=== PATIENT | male | born 1960 | race Caucasian/White ===

== ENCOUNTER → 2016-06-06 | Outpatient (CLI) | payer OTHER ==
[~2016-06-06] MED LIST: IBUP-1050 PO; OMEG10007 PO
== END | disposition home or self-care (01) ==
LOC: C.LAB1850 09:01
PROVIDERS: ATTEND Internal Medicine
DX: Z00.00 Encounter for general adult medical examination without abnormal findings (principal); Z11.59 Encounter for screening for other viral diseases

== ENCOUNTER → 2016-06-24 | Outpatient (CLI) | payer OTHER | END | disposition home or self-care (01) | LOC: C.LABSPEC 10:20 | PROVIDERS: ATTEND Internal Medicine | DX: Z12.11 Encounter for screening for malignant neoplasm of colon (principal) ==

== ENCOUNTER → 2016-09-26 | Outpatient (CLI) | payer OTHER ==
--- NOTE | 2016-09-26 17:19 | DIAGNOSTIC IMAGING REPORT ---
LEFT ELBOW 3 VIEWS CLINICAL HISTORY: Left elbow injury. FINDINGS: 3 views of left elbow are obtained. No prior studies are available for comparison at the time of dictation. The skeletal structures are well mineralized. No fracture is seen. The joint spaces appear maintained. There is no joint effusion. There is degenerative spurring along the radial head, and a large enthesophyte is present at the triceps insertion on the ulna. There is mild soft tissue swelling overlying the ulnar aspect of the elbow. Small calcific densities are present within the medial soft tissues. IMPRESSION: 1. Mild soft tissue swelling with no radiographic evidence of fracture. 2. Degenerative change as above. Electronically signed by: oJse Rhodes M.D. 09/26/2016 5:18 PM Dictated Date/Time: 09/26/2016 5:15 PM
== END | disposition home or self-care (01) ==
LOC: C.RAD1850 16:29
PROVIDERS: ATTEND Internal Medicine
DX: S59.902A Unspecified injury of left elbow, initial encounter (principal); X58.XXXA Exposure to other specified factors, initial encounter

== ENCOUNTER 2016-10-04 20:59 | Observation (INO) | payer OTHER ==
[~2016-10-04] VITALS: Ht 182.9 cm; Wt 98.7 kg
[2016-10-04] MEDS ORDERED: ASPIRIN 81 MG CHEW PO STA (21:09)
[2016-10-04] MEDS ORDERED: NITROGLYCERIN 0.4 MG SL PER TAB CHARGE SL PRN (21:15)
--- NOTE | 2016-10-04 21:33 | DIAGNOSTIC IMAGING REPORT ---
CHEST ONE VIEW PORTABLE CLINICAL HISTORY: Atypical chest pain COMPARISON STUDY: 03/20/2014 FINDINGS: The heart is borderline enlarged. There are multiple old right-sided rib fractures. There is no failure. There is no focal pulmonary consolidation. There is a nonspecific right paraspinal opacity, possibly representing a hiatal hernia.[ IMPRESSION: 1. Mild cardiomegaly 2. No evidence of failure. No evidence of focal pulmonary consolidation 3. Right paraspinal opacity at the thoracoabdominal junction possibly representing a hiatal hernia Electronically signed by: Regis Mack M.D. 10/04/2016 9:32 PM Dictated Date/Time: 10/04/2016 9:31 PM
[2016-10-04 21:40] LABS: BASO % 0.6 %; BASO ABS # 0.04 K/uL (0-0.2); COMPLETE YES; EOS % 2.2 %; HEMATOCRIT 41.6 % (42-52); IG% 0.3 %; LYMPH % 35.3 %; MEAN CELL VOLUME 87.8 fL (80-100); MEAN CORPUSCULAR HEMOGLOBIN 28.9 pg (25-34); MEAN CORPUSCULAR HGB CONC 32.9 g/dl (32-36); MEAN PLATELET VOLUME 11.6 fL (7.4-10.4); MONO % 7.5 %; NEUT % 54.1 %; PLATELET COUNT 194 K/uL (130-400); RED BLOOD COUNT 4.74 M/uL (4.7-6.1)
[2016-10-04] MEDS ORDERED: IBUP-1050 PO (21:40)
[2016-10-04] MEDS ORDERED: OMEG10007 PO (21:41)
[2016-10-04 21:50] LABS: PARTIAL THROMBOPLASTIN RATIO 1.1; PROTHROMBIN TIME (PATIENT) 10.3 SECONDS (9.0-12.0)
[2016-10-04 21:58] LABS: ALT/SGPT 29 U/L (12-78); BLOOD UREA NITROGEN 27 mg/dl (7-18); BUN/CREATININE RATIO 32.4 (10-20); CARBON DIOXIDE 25 mmol/L (21-32); CHLORIDE 108 mmol/L (98-107); CREATININE 0.82 mg/dl (0.60-1.40); GLUCOSE 115 mg/dl (70-99); POTASSIUM 4.1 mmol/L (3.5-5.1); SODIUM 142 mmol/L (136-145)
[2016-10-04 22:03] LABS: ALKALINE PHOSPHATASE 51 U/L (45-117); AST/SGOT 18 U/L (15-37); CKMB/CK RATIO 1.5 (0-3.0)
--- NOTE | 2016-10-04 22:03 | EMERGENCY ROOM VISIT NOTE ---
History Report prepared by Renaldo: Emelny Higgins Under the Supervision of: Dr. Marquis Leal D.O. First contact with patient: 21:06 Chief Complaint: CARDIAC ASSESSMENT Stated Complaint: LEFT SIDE OF CHEST HURTS, HEADACHE History of Present Illness The patient is a 56 year old male who presents to the Emergency Room with complaints of constant left sided chest pressure starting yesterday evening. The history was given through a friend interpreting. Yesterday evening he started to feel pressure in his chest and a headache. He was unable to sleep well last night. He stayed home today and called the doctor's office who said to present to the ED. His pain worsens with exertion. Lying down improves his pain. He does not have any pain with breathing. He reports some back pain. He denies any abdominal pain, leg pain, or SOB. He is under increased stress at work. He is not on any medications. He denies any tobacco or alcohol use. He denies any family history of MD. Source of History: patient (through friend interpreting) Onset: yesterday evening Position: chest (left) Quality: pressure Timing: constant Modifying Factors (Worsening): exertion Modifying Factors (Relieving): other (lying down) Associated Symptoms: + back pain, + headache, No SOB, No abdominal pain Note: Pt denies leg pain. Review of Systems See HPI for pertinent positives & negatives. A total of 10 systems reviewed and were otherwise negative. Past Medical & Surgical Medical Problems: (1) Chest pain, rule out acute myocardial infarction Surgical Problems: (1) Status post right knee replacement Family History Hypertension Social History Smoking Status: Never Smoker Alcohol Use: none Marital Status: Housing Status: lives with family Occupation Status: employed Current/Historical Medications Scheduled Fish Oil ([place]-3), 1 CAP PO DAILY Scheduled PRN Ibuprofen (Advil), 200 MG PO TID PRN for Pain or Fever Allergies Coded Allergies: No Known Allergies (Verified , 12/31/07) Physical Exam Vital Signs Date Time Temp Pulse Resp B/P Pulse Ox O2 Delivery O2 Flow Rate FiO2 10/04/16 23:44 58 16 113/78 96 Room Air 10/04/16 22:00 66 10/04/16 21:51 83 18 113/78 10/04/16 21:40 88 16 128/89 10/04/16 21:02 36.4 68 18 135/86 95 Physical Exam GENERAL: Patient is awake, alert, and in no acute distress. Patient is resting comfortably and showing no signs of anxiety EYES: The conjunctivae are clear. The pupils are round and reactive. EARS, NOSE, MOUTH AND THROAT: The nose is without any evidence of any deformity. Mucous membranes are moist tongue is midline NECK: The neck is nontender and supple. RESPIRATORY: Normal respiratory effort is noted there is no evidence of wheezing rhonchi or rales CARDIOVASCULAR: Regular rate and rhythm noted there no murmurs rubs or gallops normal S1 normal S2 GASTROINTESTINAL: The abdomen is soft. Bowel sounds are present in all quadrants. Abdomen is nontender MUSCULOSKELETAL/EXTREMITIES: There is no evidence of gross deformity full range of motion is noted in the hips and shoulders SKIN: There is no obvious evidence of any rash. There are no petechiae, pallor or cyanosis noted. NEUROLOGIC: Patient is awake alert and oriented x3 according to friend. Medical Decision & Procedures ER Provider Diagnostic Interpretation: X-ray results as stated below per interpretation by me and the radiologist. CHEST ONE VIEW PORTABLE CLINICAL HISTORY: Atypical chest pain COMPARISON STUDY: 03/20/2014 FINDINGS: The heart is borderline enlarged. There are multiple old right-sided rib fractures. There is no failure. There is no focal pulmonary consolidation. There is a nonspecific right paraspinal opacity, possibly representing a hiatal hernia.[ IMPRESSION: 1. Mild cardiomegaly 2. No evidence of failure. No evidence of focal pulmonary consolidation 3. Right paraspinal opacity at the thoracoabdominal junction possibly representing a hiatal hernia Electronically signed by: Regis Mack M.D. 10/04/2016 9:32 PM Dictated Date/Time: 10/04/2016 9:31 PM Laboratory Results Test 10/04/16 21:30 Prothrombin Time 10.3 SECONDS (9.0-12.0) Prothromb Time International Ratio 1.0 (0.9-1.1) Activated Partial Thromboplast Time 28.2 SECONDS (21.0-31.0) Partial Thromboplastin Ratio 1.1 D-Dimer 250 ug/L FEU (0-500) Total Bilirubin 0.2 mg/dl (0.2-1) Direct Bilirubin < 0.1 mg/dl (0-0.2) Aspartate Amino Transf (AST/SGOT) 18 U/L (15-37) Alanine Aminotransferase (ALT/SGPT) 29 U/L (12-78) Alkaline Phosphatase 51 U/L (45-117) Total Creatine Kinase 130 U/L (39-308) Creatine Kinase MB 2.0 ng/ml (0.5-3.6) Creatine Kinase MB Ratio 1.5 (0-3.0) Total Protein 6.6 gm/dl (6.4-8.2) Albumin 3.7 gm/dl (3.4-5.0) Lipase 137 U/L (73-393) Laboratory results per my review. Medications Administered Medications (Trade) Dose Ordered Sig/Brissa Route Start Time Stop Time Status Last Admin Dose Admin Aspirin (Aspirin Chew) 324 mg NOW STAT PO 10/04/16 21:09 10/04/16 21:10 DC 10/04/16 21:49 324 MG Nitroglycerin (Nitrostat Tab) 0.4 mg Q5M PRN SL 10/04/16 21:15 11/03/16 21:14 10/04/16 21:50 0.4 MG ECG Indication: chest pain Rate (beats per minute): 63 Rhythm: normal sinus Findings: no ectopy, other (no acute ST segment abnormality) Comparison ECG Date: 13-May-2002 Change: no significant change ED Course 2106: The patient was evaluated in room B10. A complete history and physical examination were performed. 2108: Aspirin 324 mg PO. 2114: Nitroglycerin 0.4 mg SL. 2215: I reevaluated the patient. His pain has improved after the aspirin and nitro. I discussed results and treatment plan with him. He verbalizes agreement and understanding. The patient will be evaluated for further management and care. 2225: I discussed the patient's case with Dr. Anders, [facility] [place]. The patient will be evaluated for further management. Medical Decision Prior records/ancillary studies reviewed. Triage Nursing notes reviewed. The patient's history was concerning for chest pain. Differential diagnosis: Etiologies such as cardiac ischemia, aortic dissection, pulmonary embolism, pneumonia, pneumothorax, musculoskeletal, infections, pericarditis, myocarditis , esophageal rupture, gastrointestinal, as well as others were entertained. The patient is a 56-year-old male who presented to the emergency department for an evaluation of exertional chest pain. The patient was treated with aspirin in the emergency department. He was also treated with nitroglycerin. This seemed to relieve his pain. I discussed the patient's laboratory and radiographic studies with him. I also discussed the limitations of the emergency department workup for chest pain with him. Given the patient's history and pain description I do feel he could be at significant risk for underlying coronary artery disease. For this reason I discussed his case with the on-call [facility] hospitalist group. They have agreed to evaluate the patient in the emergency department for further management and disposition. Consults Time Called: 2219 Consulting Physician: Dr. Anders [facility] [place] - hospitalist Returned Call: 2225 I discussed the patient's case with him. The patient will be evaluated for further management. Impression Primary Impression: Exertional chest pain Scribe Attestation The scribe's documentation has been prepared under my direction and personally reviewed by me in its entirety. I confirm that the note above accurately reflects all work, treatment, procedures, and medical decision making performed by me. Departure Information Dispostion Being Evaluated By Hospitalist Referrals RV. Berger MD (PCP) Patient Instructions My [facility]
[2016-10-04 22:04] LABS: CALCIUM 8.6 mg/dl (8.5-10.1)
[2016-10-05] VITALS (9 sets, daily range): BP systolic 108–131; BP diastolic 67–84; PULSE 61–70; TEMP 36.3–36.6; O2SAT 93–96; Ht 182.9 cm; Wt 98.7 kg
[2016-10-05] MEDS ORDERED: IV FLUIDS COMPLETED PRN (01:45)
--- NOTE | 2016-10-05 04:44 | History and Physical ---
History & Physical Date & Time of Service: October 05, 2016 at 04:32 Chief Complaint: Chest Pain, R/O Acutemyocardial Infarction Primary Care Physician: RV. Berger MD History of Present Illness Source: patient, friend (Lisa who acts as superintendent operations division at his PCP) 56 year old male susan who presents after having chest pain which started after an argument with his boss on Monday around 4pm. Severity 09/05. No radiation. No associated nausea, diaphoresis or shortness of breath. Nothing has made the pain worse. It is not exertional, positional, or changes with food. It has been constantly there until he received ASA and nitroglycerin in the ER which helped and now he is without pain. He denies any orthopnea, PND, leg swelling, palpitations or claudication. He has a 5 pack-year history of smoking. No known diabetes. No family history of ID at an early age. Past Medical/Surgical History Surgical Problems: (1) Status post right knee replacement Status: Resolved Family History Hypertension Social History Smoking Status: Former Smoker (5 pack-year) Alcohol Use: none Drug Use: none Marital Status: Occupational Status: employed ([employer]) Multi-Drug Resistant Organisms History of MDRO: No Allergies Coded Allergies: No Known Allergies (Verified , 12/31/07) Home Medications Scheduled Fish Oil ([place]-3), 1 CAP PO DAILY Review of Systems Constitutional: + chills (last night) Eyes: No problem reported ENT: No problem reported Respiratory: No cough, No problem reported, No shortness of breath Cardiovascular: No PND, No claudication, No edema, No orthopnea, No palpitations, No problem reported Abdomen: No constipation, No diarrhea, No nausea, No pain, No vomiting Genitourinary - Male: No dysuria, No hematuria, No problem reported, No urinary frequency Endocrine: No excessive thirst, No excessive urination, No fatigue, No problem reported Hematologic / Lymphatic: No abnormal bleeding/bruising Integumentary: No itch, No rash Physical Exam Vital Signs Date Time Temp Pulse Resp B/P Pulse Ox O2 Delivery O2 Flow Rate FiO2 10/05/16 04:00 Room Air 10/05/16 01:42 36.3 64 16 131/84 94 Room Air 10/04/16 23:44 58 16 113/78 96 Room Air 10/04/16 22:00 66 10/04/16 21:51 83 18 113/78 10/04/16 21:40 88 16 128/89 10/04/16 21:02 36.4 68 18 135/86 95 General Appearance: WD/WN, no apparent distress Head: normocephalic, atraumatic Eyes: normal inspection, EOMI ENT: normal ENT inspection Neck: supple, no JVD Respiratory/Chest: chest non-tender (non reproducible chest pain), lungs clear , normal breath sounds, no respiratory distress, no accessory muscle use Cardiovascular: regular rate, rhythm, no edema, no murmur, normal peripheral pulses Abdomen/GI: normal bowel sounds, non tender, soft Back: no CVA tenderness Extremities/Musculoskelatal: no calf tenderness, normal capillary refill, no pedal edema 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 (no facial droop), no motor/sensory deficits (grossly), alert, oriented x 3 Skin: normal color, warm/dry, no rash Lymphatic: no adenopathy Diagnostics Laboratory Results Results Past 24 Hours Test 10/04/16 21:30 Range/Units White Blood Count 6.80 4.8-10.8 K/uL Red Blood Count 4.74 4.7-6.1 M/uL Hemoglobin 13.7 14.0-18.0 g/dL Hematocrit 41.6 42-52 % Mean Corpuscular Volume 87.8 80-100 fL Mean Corpuscular Hemoglobin 28.9 25-34 pg Mean Corpuscular Hemoglobin Concent 32.9 32-36 g/dl Platelet Count 194 130-400 K/uL Mean Platelet Volume 11.6 7.4-10.4 fL Neutrophils (%) (Auto) 54.1 % Lymphocytes (%) (Auto) 35.3 % Monocytes (%) (Auto) 7.5 % Eosinophils (%) (Auto) 2.2 % Basophils (%) (Auto) 0.6 % Neutrophils # (Auto) 3.68 1.4-6.5 K/uL Lymphocytes # (Auto) 2.40 1.2-3.4 K/uL Monocytes # (Auto) 0.51 0.11-0.59 K/uL Eosinophils # (Auto) 0.15 0-0.5 K/uL Basophils # (Auto) 0.04 0-0.2 K/uL RDW Standard Deviation 39.9 36.4-46.3 fL RDW Coefficient of Variation 12.4 11.5-14.5 % Immature Granulocyte % (Auto) 0.3 % Immature Granulocyte # (Auto) 0.02 0.00-0.02 K/uL Prothrombin Time 10.3 9.0-12.0 SECONDS Prothromb Time International Ratio 1.0 0.9-1.1 Activated Partial Thromboplast Time 28.2 21.0-31.0 SECONDS Partial Thromboplastin Ratio 1.1 D-Dimer 250 0-500 ug/L FEU Sodium Level 142 136-145 mmol/L Potassium Level 4.1 3.5-5.1 mmol/L Chloride Level 108 98-107 mmol/L Carbon Dioxide Level 25 21-32 mmol/L Anion Gap 9.0 3-11 mmol/L Blood Urea Nitrogen 27 7-18 mg/dl Creatinine 0.82 0.60-1.40 mg/dl Est Creatinine Clear Calc Drug Dose 122.1 ml/min Estimated GFR () 113.0 Estimated GFR (Non- 97.5 BUN/Creatinine Ratio 32.4 10-20 Random Glucose 115 70-99 mg/dl Calcium Level 8.6 8.5-10.1 mg/dl Total Bilirubin 0.2 0.2-1 mg/dl Direct Bilirubin < 0.1 0-0.2 mg/dl Aspartate Amino Transf (AST/SGOT) 18 15-37 U/L Alanine Aminotransferase (ALT/SGPT) 29 12-78 U/L Alkaline Phosphatase 51 45-117 U/L Total Creatine Kinase 130 39-308 U/L Creatine Kinase MB 2.0 0.5-3.6 ng/ml Creatine Kinase MB Ratio 1.5 0-3.0 Troponin I < 0.015 0-0.045 ng/ml Total Protein 6.6 6.4-8.2 gm/dl Albumin 3.7 3.4-5.0 gm/dl Lipase 137 73-393 U/L Normal EKG Impression Assessment and Plan 56 year old male with no previous cardiac history presents to the ER with left sided chest pain. D-dimer negative. Initial troponin and EKG negative for ischemia Chest pain rule out ID - serial troponin - exercise stress test in AM - EKG shows no sign of ischemia - fasting lipid panel and HbA1C in morning - EKG with chest pain VTE prophylaxis - will hold off chemical prophylaxis overnight as patient mobile Code - Full Disposition - telemetry due to chest pain Level of Care Telemetry Advanced Directives Existing Living Will: No Existing Power of Medicaid Eligibility Specialist: No Resuscitation Status FULL RESUSCITATION VTE Prophylaxis VTE Risk Assessment Done? Y/N: Yes Risk Level: Moderate Given or contraindicated: Treatment not indicated Resident Tracking Resident Involvement: Resident Care Provided Care Provided: [facility] Medicine Assessment and Plan Attending Addendum: I have physically seen and examined this patient, have directed their medical care, have supervised the medical residents activities, and agree with the H&P as noted above, with the following changes: NONE
[2016-10-05 05:57] LABS: BASO % 0.5 %; BASO ABS # 0.03 K/uL (0-0.2); COMPLETE YES; EOS % 2.6 %; HEMATOCRIT 41.5 % (42-52); IG% 0.2 %; LYMPH ABS # 2.44 K/uL (1.2-3.4); MEAN CELL VOLUME 88.5 fL (80-100); MEAN CORPUSCULAR HEMOGLOBIN 29.4 pg (25-34); MEAN CORPUSCULAR HGB CONC 33.3 g/dl (32-36); MEAN PLATELET VOLUME 11.4 fL (7.4-10.4); MONO % 9.3 %; NEUT % 45.4 %; PLATELET COUNT 168 K/uL (130-400); RED BLOOD COUNT 4.69 M/uL (4.7-6.1); WHITE BLOOD COUNT 5.81 K/uL (4.8-10.8)
[2016-10-05 06:37] LABS: CALCIUM 8.7 mg/dl (8.5-10.1); CREATININE 0.69 mg/dl (0.60-1.40); POTASSIUM 4.4 mmol/L (3.5-5.1)
[2016-10-05 06:46] LABS: ESTIMATED AVERAGE GLUCOSE 117 mg/dl; HA1C FLAG Normal (Normal)
--- NOTE | 2016-10-05 11:26 | DIAGNOSTIC IMAGING REPORT ---
CHEST 2 VIEWS ROUTINE HISTORY: Atypical chest pain, right paraspinal abnormality COMPARISON: Chest 10/04/2016. FINDINGS: Old, healed right-sided rib fractures. No focal lung consolidations to suggest pneumonia. No evidence for pulmonary edema. The heart remains mildly enlarged. Lower right thoracic paraspinal density remains unchanged. Old left-sided clavicle fracture. IMPRESSION: No change from the prior study. Lower right thoracic paraspinal small lobular density remains unchanged. This statistically represents a small hiatus hernia. However, chest CT would be required for confirmation. Electronically signed by: Ramiro Ladd M.D. 10/05/2016 11:24 AM Dictated Date/Time: 10/05/2016 11:19 AM
[2016-10-05] MEDS ORDERED: OPTIRAY 320 IV PRN (17:00)
--- NOTE | 2016-10-05 18:26 | DIAGNOSTIC IMAGING REPORT ---
CHEST CT WITH CONTRAST CT DOSE: 459.25 mGy.cm HISTORY: Abnormal chest x-ray right paraspinal lobular density seen on CXR TECHNIQUE: Multiaxial CT images of the chest were performed following the intravenous administration of contrast. COMPARISON: None. FINDINGS: The lungs are clear. The mediastinal vascular structures are within normal limits. No mediastinal or hilar lymphadenopathy. No pleural effusion or pneumothorax. Limited views of the upper abdomen demonstrate a normal liver and spleen. There is a fat-containing. Esophageal hernia. This appears to explain the routine chest film findings. This is in the right paravertebral location. IMPRESSION: 1. No acute process of the chest. 2. Small focus of right para esophageal fat herniation through the diaphragmatic hiatus at the gastroesophageal junction. 3. This appears to be a benign finding accounting for the chest film findings Electronically signed by: Jose Cruz Cowan M.D. 10/05/2016 6:24 PM Dictated Date/Time: 10/05/2016 6:22 PM
--- NOTE | 2016-10-05 18:44 | EXERCISE STRESS ECHO ---
*NOTICE TO RECEIVING LIBERTARIAN AGENCY This information is strictly Confidential and protected under [place] law. [place] law prohibits you from making any further disclosure of this information unless further disclosure is expressly permitted by the written consent of the person to whom it pertains or is authorized by law. A general authorization for the release of medical or other information is not sufficient for this purpose. Hospital accepts no responsibility if the information is made available to any other person, INCLUDING THE PATIENT. Interpretation Summary * Name: GITA LUCIANO Study Date: 10/05/2016 09:18 AM BP: 112/77 mmHg * Patient Location: .[facility]\S\N283\S\1 HR: 84 * : 1960 (M/d/yyyy) Gender: Male Height: 73 in * Age: 56 yrs Ethnicity: CA Weight: 220 lb * Ordering Physician: Ryan Anders * Referring Physician: Self, Referred * Performed By: Siena Horan RDCS * * Reason For Study: Chest pain * BSA: 2.2 m2 * -- Conclusions -- * 1. Negative exercise stress echo for ischemia at 95% MPHR. * 2. Negative exercise ECG for ischemia. * 3. Below average function capacity. Exercised 5:59, achieved 7 METS. * 4. No exercise induced chest pain. Normal hemodynamic response to exercise. * 5. Normal resting LV size and function. LVEF 55-60%. Normal RV size and function. No significant valvular pathology. Procedure Details * ECHOEX, CPT #[id number] * ECHO DOPPLER, CPT #[id number] * ECHO COLOR FLOW, CPT #[id number] Left Ventricular Findings with Stress * This was essentially a normal study. Left Ventricle * The left ventricle is grossly normal size. * There is normal left ventricular wall thickness. * Ejection Fraction = 55-60%. Right Ventricle * The right ventricular cavity size is normal (basal dimension <4.2 cm in right ventricular apical 4-chamber view). * The right ventricular systolic function is normal as assessed by tricuspid annular plane systolic excursion (TAPSE) (normal >1.5 cm). Atria * The left atrial size is normal. * Right atrial size is normal. * No ASD detected; PFO is not assessed. Mitral Valve * The mitral valve is grossly normal. * There is no mitral valve stenosis. * Significant mitral regurgitation is absent. Tricuspid Valve * The tricuspid valve is not well visualized, but is grossly normal. * There is no tricuspid stenosis. * There is trace tricuspid regurgitation. * Right ventricular systolic pressure is normal. Aortic Valve * The aortic valve opens well. * The aortic valve is trileaflet. * No hemodynamically significant valvular aortic stenosis. Pulmonic Valve * The pulmonic valve is not well visualized. * Trace pulmonic valvular regurgitation. Great Vessels * The aortic root and proximal ascending aorta are normal sized. * No Doppler or imaging evidence of an aortic coarctation. Pericardium * There is no pericardial effusion. Stress Parameters * Normal baseline electrocardiogram. * Stress ECG: No ST changes. No arrhythmias. * No arrhythmia were noted with stress. * Rest heart rate was '84' BPM. * Rest blood pressure was '112/77' * Maximum heart rate achieved was 155 bpm. * Maximum heart rate was 95 % of maximum age-predicted heart rate. * Maximum blood pressure was '171/73' * Total exercise time was '5:59' * Maximum exercise MET level achieved was '7.00' METS * Maximum treadmill speed was '2.50' miles per hour. * Maximum treadmill elevation was '12.00'% grade. * Exercise was terminated due to 'achieving target heart rate' Left Ventricular Findings with Stress * The study was technically good with many images being of high quality. MMode 2D Measurements and Calculations IVSd 0.96 cm LVIDd 3.9 cm LVIDs 2.8 cm LVPWd 0.87 cm IVS/LVPW 1.1 FS 28.3 % EDV(Teich) 65.7 ml ESV(Teich) 29.3 ml EF(Teich) 55.4 % EDV(cubed) 59.1 ml ESV(cubed) 21.7 ml EF(cubed) 63.2 % LV mass(C)d 107.2 grams LV mass(C)dI 47.8 grams/m\S\2 SV(Teich) 36.4 ml SI(Teich) 16.2 ml/m\S\2 SV(cubed) 37.3 ml SI(cubed) 16.7 ml/m\S\2 Ao root diam 3.9 cm Ao root area 12.0 cm\S\2 ACS 1.8 cm LA dimension 2.8 cm asc Aorta Diam 3.5 cm LA/Ao 0.72 LVOT diam 2.0 cm LVOT area 3.3 cm\S\2 LVAd ap4 30.6 cm\S\2 LVLd ap4 7.8 cm EDV(MOD-sp4) 97.4 ml EDV(sp4-el) 101.8 ml LVAs ap4 18.6 cm\S\2 LVLs ap4 6.7 cm ESV(MOD-sp4) 43.8 ml ESV(sp4-el) 43.9 ml EF(MOD-sp4) 55.0 % EF(sp4-el) 56.9 % LVAd ap2 29.8 cm\S\2 LVLd ap2 7.9 cm EDV(MOD-sp2) 91.6 ml EDV(sp2-el) 95.3 ml LVAs ap2 18.0 cm\S\2 LVLs ap2 6.6 cm ESV(MOD-sp2) 41.6 ml ESV(sp2-el) 41.6 ml EF(MOD-sp2) 54.6 % EF(sp2-el) 56.3 % LVLd %diff 1.0 % EDV(MOD-bp) 94.4 ml LVLs %diff -1.38 % ESV(MOD-bp) 42.4 ml EF(MOD-bp) 55.0 % SV(MOD-sp4) 53.5 ml SI(MOD-sp4) 23.9 ml/m\S\2 SV(MOD-sp2) 50.0 ml SI(MOD-sp2) 22.3 ml/m\S\2 SV(MOD-bp) 51.9 ml SI(MOD-bp) 23.2 ml/m\S\2 SV(sp4-el) 58.0 ml SI(sp4-el) 25.9 ml/m\S\2 SV(sp2-el) 53.7 ml SI(sp2-el) 24.0 ml/m\S\2 Doppler Measurements and Calculations MV E max autumn 74.5 cm/sec MV A max autumn 68.6 cm/sec MV E/A 1.1 MV dec time 0.25 sec Ao V2 max 99.5 cm/sec Ao max PG 4.0 mmHg Ao max PG (full) 0.70 mmHg MARY(V,A) 3.0 cm\S\2 MARY(V,D) 3.0 cm\S\2 LV V1 max PG 3.3 mmHg LV V1 max 90.3 cm/sec PA V2 max 90.9 cm/sec PA max PG 3.3 mmHg PA acc slope 532.7 cm/sec\S\2 PA acc time 0.11 sec TR max autumn 186.4 cm/sec PA pr(Accel) 31.5 mmHg
--- NOTE | 2016-10-05 19:27 | Discharge Instructions ---
Discharge Instructions Date of Service October 05, 2016. Admission Reason for Admission: Chest Pain Discharge Discharge Diagnosis / Problem: Chest thrq-ywe-[id number] Discharge Goals Goal(s): Improve disease control, Diagnostic testing, Therapeutic intervention Activity Recommendations Activity Limitations: resume your previous activity . Instructions / Follow-Up Instructions / Follow-Up You were admitted with chest pain. You did not have a heart attack. Your stress test of the heart was normal. Your chest xray showed a small hernia of fat coming through next to your esophagus (the tube where food passes into the stomach). This is nothing to be concerned about. Please follow up with your family doctor within 1 week. Current Hospital Diet Patient's current hospital diet: AHA Diet (Heart Healthy) Discharge Diet Recommended Diet: Regular Diet Procedures Procedures Performed: Stress Echocardiogram-normal Pending Studies Studies pending at discharge: no Laboratory Results Hemoglobin A1c Test 10/05/16 05:42 Range/Units Estimated Average Glucose 117 mg/dl Hemoglobin A1c 5.7 H 4.5-5.6 % Lipid Panel Test 10/05/16 05:42 Range/Units Triglycerides Level 108 0-150 mg/dl Cholesterol Level 191 0-200 mg/dl HDL Cholesterol 48 mg/dl Cholesterol/HDL Ratio 4.0 LDL Cholesterol, Calculated 121 mg/dl Medical Emergencies . Who to Call and When: Medical Emergencies: If at any time you feel your situation is an emergency, please call 911 immediately. . Non-Emergent Contact Non-Emergency issues call your: Primary Care Provider Call Non-Emergent contact if: your pain is not controlled, your pain is worsening . . "Provider Documentation" section prepared by Vannessa Patel. . VTE Core Measure Inpt VTE Proph given/why not?: Treatment not indicated
--- NOTE | 2016-10-05 19:34 | Discharge Summary ---
Discharge Summary Date of Service October 05, 2016. (Susi Evans MD) Discharge Summary Admission Date: October 05, 2016 at 00:13 Discharge Date: October 05, 2016 Discharge Disposition: Home Principal Diagnosis: Chest pain Procedures: Stress echo (Susi Evans MD) Medication Reconciliation Continued Medications: Fish Oil ([place]-3) 1 Ea Cap 1 CAP PO DAILY, CAP Discontinued Medications: Ibuprofen (Advil) 200 Mg Tab 200 MG PO TID PRN for Pain or Fever, TAB Discharge Exam 56-year-old male with no significant past medical history presented with chest pain which started on Monday and was persistent . Doing well. Chest pain is now resolved. Denies any shortness of breath, palpitations, dizziness Review of Systems: Constitutional: No chills, No fever Eyes: No worsening of vision ENT: No hearing loss Respiratory: No cough, No dyspnea on exertion, No shortness of breath, No sputum Cardiovascular: No chest pain Abdomen: No nausea, No pain Genitourinary - Male: No dysuria, No hematuria Neurologic: No memory loss Psychiatric: No depression symptoms Endocrine: No fatigue Hematologic / Lymphatic: No abnormal bleeding/bruising Physical Exam: General Appearance: WD/WN, no apparent distress Eyes: normal inspection ENT: normal ENT inspection, hearing grossly normal Neck: supple Respiratory/Chest: chest non-tender, lungs clear, normal breath sounds, no respiratory distress, no accessory muscle use Cardiovascular: regular rate, rhythm, no edema Abdomen / GI: normal bowel sounds, non tender, soft Extremities: normal inspection, no calf tenderness, no pedal edema Neurologic/Psychiatric: alert, normal mood/affect, oriented x 3 Skin: normal color (Susi Evans MD) Hospital Course 56 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 Severity 09/05. No radiation. No associated nausea, diaphoresis or shortness of breath. Nothing has made the pain worse. It is not exertional, positional, or changes with food. It has been constantly there until he received ASA and nitroglycerin in the ER which helped and now he is without pain. He denied any orthopnea, PND, leg swelling, palpitations or claudication. He has a 5 pack-year history of smoking. No known diabetes. No family history of IA at an early age. He received aspirin and nitroglycerin in the ER which resolved his pain. Serial troponins 3 were negative, EKG showed no ischemic changes. He underwent a stress echo this morning: * 1. Negative exercise stress echo for ischemia at 95% MPHR. * 2. Negative exercise ECG for ischemia. * 3. Below average function capacity. Exercised 5:59, achieved 7 METS. * 4. No exercise induced chest pain. Normal hemodynamic response to exercise. * 5. Normal resting LV size and function. LVEF 55-60%. Normal RV size and function. No significant valvular pathology. His chest x-ray did reveal 1. Mild cardiomegaly 2. No evidence of failure. No evidence of focal pulmonary consolidation 3. Right paraspinal opacity at the thoracoabdominal junction possibly representing a hiatal hernia Chest x-ray 2 view was obtained for evaluation of the right paraspinal opacity, eventually a CT chest was obtained which revealed a Small focus of right para esophageal fat herniation through the diaphragmatic hiatus at the gastroesophageal junction. he was discharged in stable condition and recommended follow-up with PCP in about a week Total Time Spent: Less than 30 minutes This includes examination of the patient, discharge planning, medication reconciliation, and communication with other providers. (Susi Evans MD) Discharge Instructions Please refer to the electronic Patient Visit Report (Discharge Instructions) for additional information. (Susi Evans MD) Follow-Up Follow-up with PCP in one week (Susi Evans MD) Additional Copies To RV. Berger MD Resident Tracking Resident Involvement: Resident Care Provided Care Provided: [facility] (Susi Evans MD) Reviewed: Pt Seen/Exam by Me (Vannessa Patel MD) History Resident Physician Supervision Note: I interviewed and examined the patient. Discussed with Dr. Evans and agree with findings and plan as documented in the note. Any exceptions or clarifications are listed here: Patient doing very well the entire hospital stay he had no recurrence of this chest pain. He ruled out for acute coronary syndrome. He had a normal stress echocardiogram. His lipid panel was excellent. His CT of the chest showed the diaphragmatic hernia which probably did not contribute to his chest pain. All these results were discussed with him through an language interpreter service provided by the hospital. He will be discharged home and follow up with his PCP. Vitals and telemetry reviewed-no significant events on telemetry No acute distress Regular rate and rhythm, no murmurs gallops or rubs Clear to auscultation bilaterally, breathing unlabored Abdomen soft nontender positive bowel sounds nondistended Extremities no edema Documented By: Vannessa Patel (Vannessa Patel MD)
== END 2016-10-05 19:59 | disposition home or self-care (01) ==
LOC: ENRESERVTM → ENRESERVDT → C.EDB 21:01 → C.MED 10-05 00:13
PROVIDERS: ADMIT Hospitalist; ATTEND Family Medicine
DX: R07.89 Other chest pain (principal); F17.200 Nicotine dependence, unspecified, uncomplicated; Z96.651 Presence of right artificial knee joint; Z82.49 Family history of ischemic heart disease and other diseases of the circulatory system

== ENCOUNTER → 2016-10-10 | Outpatient (CLI) | payer OTHER ==
[~2016-10-10] MED LIST changes: -IBUP-1050 PO
== END | disposition home or self-care (01) ==
LOC: C.PATHSPEC 16:29
PROVIDERS: ATTEND Dermatology
DX: C44.310 Basal cell carcinoma of skin of unspecified parts of face (principal); B07.9 Viral wart, unspecified

== ENCOUNTER → 2016-11-07 | Outpatient (CLI) | payer OTHER | END | disposition home or self-care (01) | LOC: C.PATHSPEC 17:43 | PROVIDERS: ATTEND Plastic Surgery | DX: C44.91 Basal cell carcinoma of skin, unspecified (principal) ==